=== PATIENT | female | born 1980 | race Caucasian/White ===

== ENCOUNTER 2019-10-18 12:57 | Emergency (ER) | payer BC, SELFPAY ==
--- NOTE | ~2019-10-18 | XR_ITS ---
XR foot RT min 3V 10/18/2019 13:23 Indication: Stubbed right great toe. Toe pain. Procedure: 4 views right foot Comparison: No prior studies for comparison. Findings: There is a nondisplaced fracture medial base of the first distal phalanx. Mild soft tissue swelling. No foreign bodies. Lisfranc joint is intact. Impression: 1: Nondisplaced fracture medial base right first distal phalanx. Reviewed, dictated and finalized at location A. Impression: 1: Nondisplaced fracture medial base right first distal phalanx.
--- NOTE | 2019-10-18 13:08 | ED.GENADULT ---
HPI - General Adult General Chief complaint: Extremity Injury, Lower Stated complaint: right foot injury Time Seen by Provider: 10/18/19 13:08 Source: patient Mode of arrival: ambulatory Limitations: no limitations History of Present Illness HPI narrative: 39-year-old female patient presents to the [facility] with complaints of right great toe pain. Patient states that yesterday she kicked a tackle box. Patient states since then she has been using rest, ice, and elevation. Patient states she has been taking ibuprofen for her pain. Patient states she has had a walk on the lateral edge of her foot and cannot bear weight on the toe area. Patient states she has had a little bit of tingling to the great toe area. Related Data Allergies Allergy/AdvReac Type Severity Reaction Status Date / Time No Known Allergies Allergy Unverified 06/25/17 17:40 Review of Systems Review of Systems: Narrative: CONSTITUTIONAL: Denies fever, chills, or sweats. EYES: Denies visual changes, redness, or discharge. ENT: Denies rhinorrhea, congestion, sore throat, or otalgia. CARDIOVASCULAR: Denies chest pain, palpitations, or edema. RESPIRATORY: Denies cough or dyspnea. GASTROINTESTINAL: Denies abdominal pain, nausea, vomiting, or diarrhea. GENITOURINARY: Denies dysuria or hematuria. SKIN: Denies rash or itching. MUSCULOSKELETAL: Denies back pain, joint pain, or myalgia. Positive right great toe pain NEUROLOGIC: Denies headache, numbness, or weakness. PSYCHIATRIC: Denies anxiety or depression. PMFSH Comments At the time of my signature I agree with nursing past medical history, surgical, social, and family history. There is no relevant family history pertinent to the presenting complaint. Exam Narrative: Exam Narrative: GENERAL: Well-appearing, well-nourished, and in no acute distress. HEAD: Normocephalic, atraumatic. EYES: PERRLA and EOMI. ENT: Nares clear, no rhinorrhea or epistaxis. Mucous membranes moist. NECK: Supple. No lymphadenopathy CHEST: Clear to auscultation. No respiratory distress. HEART: Regular rate and rhythm. No murmur heard. Normal peripheral pulses. ABDOMEN: Soft, nontender, nondistended, normal active bowel sounds. EXTREMITIES: Patient able to bear weight and ambulate but has pain to the right great toe area. Patient does have some ecchymosis noted to the posterior foot area. There is some swelling noted to the great toe as compared to the left great toe. No erythema, lesions, ulcers or break in skin integrity. The R foot is without obvious asymmetry or deformity when compared to the L foot. No bony step-off, tender to palpation over the right great toe, no pain or tenderness over the midfoot or hindfoot or sole. Normal plantar/dorsiflexion, inversion/eversion. Distal motor and neurovascular status are intact SKIN: Warm, dry, no rash. NEURO: No focal deficits. Alert and oriented x3. Course Reevaluation(s) Reevaluation #1: Reevaluated patient after her x-ray had resulted. Discussed with her that there is a tiny nondisplaced avulsion fracture to the right great toe. Discussed with her that we will go ahead and angeles tape the toes and place her in a postop shoe to help with walking. Discussed with her she can follow-up with her primary doctor or we will also refer to the orthopedic surgeon for follow-up. Discussed with patient she can continue taking Tylenol and ibuprofen as needed for the pain, keep it elevated and continue to ice it as needed. Patient verbalized understanding of this denies any other questions or concerns at this time. Date: 10/18/19 Time: 13:38 Vital Signs Vital signs: Vital Signs Temperature 37.4 C 10/18/19 13:12 Pulse Rate 94 10/18/19 13:12 Respiratory Rate 16 10/18/19 13:12 Blood Pressure 112/62 10/18/19 13:12 Pulse Oximetry 99 10/18/19 13:12 Temperature 37.4 C 10/18/19 13:12 Pulse Rate 94 10/18/19 13:12 Respiratory Rate 16 10/18/19 13:12 Blood Pressure 112/62 10/18/19 13:
[2019-10-18 13:12] VITALS: BP 112/62; PULSE 94; RESP 16; TEMP 37.4; O2SAT 99
== END 2019-10-18 13:47 | disposition home or self-care (01) ==
PROVIDERS: Emergency Provider Nurse Practitioner Family; PCP Family Medicine
DX: S92.424A Nondisplaced fracture of distal phalanx of right great toe, initial encounter for closed fracture (principal); W22.8XXA Striking against or struck by other objects, initial encounter
CPT/HCPCS: 73630; 99214; G0463

== ENCOUNTER 2020-02-10 08:44 | Emergency (ER) | payer BC, SELFPAY ==
--- NOTE | 2020-02-10 08:52 | ED.GENADULT ---
HPI - General Adult General Chief complaint: Ear Stated complaint: Right Eye,Left Ear Pain Time Seen by Provider: 02/10/20 09:15 Source: patient Mode of arrival: ambulatory Limitations: no limitations History of Present Illness HPI narrative: 39-year-old female patient presents to the [facility] with complaints of right eye pain and left ear pain. Patient states that the right eye pain started this past Sunday and states she has been using some warm compresses, and some [id number] stye cream. Patient states she has does not wear contacts. Patient states that she has not been wearing eye make-up. Patient states she has had some crusty discharge she noticed in the morning. Denies any vision changes. Patient states that she has had 14 surgeries on bilateral ears and states that her eardrum to the left ear has dropped and was instructed by her ENT doctor never to have her ears flushed. Patient states she does use some sweet oil to the left ear to try and break up the wax but states that her wax does get very hard and is dark and sometimes is difficult to get out. Related Data Allergies Allergy/AdvReac Type Severity Reaction Status Date / Time No Known Allergies Allergy Unverified 06/25/17 17:40 Review of Systems Review of Systems: Narrative: CONSTITUTIONAL: Denies fever, chills, or sweats. EYES: Denies visual changes, positive right upper eyelid redness, and discharge x3 days. ENT: Denies rhinorrhea, congestion, sore throat, positive left ear pain CARDIOVASCULAR: Denies chest pain, palpitations, or edema. RESPIRATORY: Denies cough or dyspnea. GASTROINTESTINAL: Denies abdominal pain, nausea, vomiting, or diarrhea. GENITOURINARY: Denies dysuria or hematuria. SKIN: Denies rash or itching. MUSCULOSKELETAL: Denies back pain, joint pain, or myalgia. NEUROLOGIC: Denies headache, numbness, or weakness. PSYCHIATRIC: Denies anxiety or depression. [facility] Past Medical History Medical History (Updated 02/10/20 @ 09:30 by JANA Hudson) section wound complication Social History Social History Gender identity (if verbalized by the patient): Female Comments At the time of my signature I agree with nursing past medical history, surgical, social, and family history. There is no relevant family history pertinent to the presenting complaint. Exam Narrative: Exam Narrative: GENERAL: Well-appearing, well-nourished, and in no acute distress. HEAD: Normocephalic, atraumatic. EYES: PERRLA and EOM intact without limitation or complaint of pain, patient does have some soft tissue swelling with erythema noted to the upper lid of the right eye, no warmth, positive tenderness noted, no obvious deformity. On inversion of the upper lid there is a stye noted. No crusting or swelling.no tearing or draining.No photophobia. No nystagmus No FB or lesion on lid eversion. Corneas grossly clear, no obvious FB or hyphens/hypopyon. No injection to sclera. Lids and lashes clear. ENT: Nares clear, no rhinorrhea or epistaxis. Mucous membranes moist. Patient does have some scarring on the tympanic membrane of the right ear. The left TM is unable to be assessed due to cerumen impaction. NECK: Supple. No lymphadenopathy CHEST: Clear to auscultation. No respiratory distress. HEART: Regular rate and rhythm. No murmur heard. Normal peripheral pulses. ABDOMEN: Soft, nontender, nondistended, normal active bowel sounds. EXTREMITIES: Normal range of motion. No edema. SKIN: Warm, dry, no rash. NEURO: No focal deficits. Alert and oriented x3. Course Vital Signs Vital signs: Vital Signs Temperature 36.9 C 02/10/20 08:55 Pulse Rate 82 02/10/20 08:55 Respiratory Rate 16 02/10/20 08:55 Blood Pressure 108/67 02/10/20 08:55 Pulse Oximetry 100 02/10/20 08:55 Temperature 36.9 C 02/10/20 08:55 Pulse Rate 82 02/10/20 08:55 Respiratory Rate 16 02/10/20 08:55 Blood Pressure
[2020-02-10 08:55] VITALS: BP 108/67; PULSE 82; RESP 16; TEMP 36.9; O2SAT 100
== END 2020-02-10 09:30 | disposition home or self-care (01) ==
PROVIDERS: Emergency Provider Nurse Practitioner Family
DX: H61.22 Impacted cerumen, left ear (principal); H00.021 Hordeolum internum right upper eyelid
CPT/HCPCS: 99213; G0463

== ENCOUNTER 2021-05-02 11:39 | Emergency (ER) | payer OTHER, SELFPAY ==
--- NOTE | ~2021-05-02 | XR_ITS ---
EXAMINATION: XR ankle LT min 3V DATE: 05/02/2021 11:59 INDICATION: Injury with swelling to the left lateral ankle TECHNIQUE: Anteroposterior, oblique, mortise, and lateral views of the left ankle were obtained. COMPARISON: None. FINDINGS: Tiny minimally displaced avulsion fracture fragment along the lateral process of the talus likely inv olving the footplate of the anterior talofibular ligament. Bone alignment is otherwise normal. No oth er fractures identified. Joint spaces are normal. No left ankle joint effusion. Soft tissue swelling about the lateral malleolus. IMPRESSION: 1. Small minimally distracted avulsion fracture fragment likely of the talar footplate of the anterio r talofibular ligament. Reviewed, dictated and finalized at location B. 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 Small minimally distracted avulsion fracture fragment likely of the talar fo otplate of the anterior talofibular ligament.
[2021-05-02 11:50] VITALS: BP 125/80; PULSE 102; RESP 16; TEMP 37.2; O2SAT 100
--- NOTE | 2021-05-02 12:03 | ED.LOWEXIN ---
HPI - Extremity Injury (Lower) General Chief Complaint: Extremity Injury, Lower Stated Complaint: Left ankle Pain Time Seen by Provider: 05/02/21 12:03 Source: patient, RN notes reviewed and old records reviewed Mode of arrival: ambulatory Limitations: no limitations History of Present Illness HPI Narrative: 41-year-old female presents to the [facility] with complaints of left ankle pain after rolling it last night and feeling to pops. Has been taking ibuprofen resting and elevating along with ice with minimal to no relief. Related Data Allergies Allergy/AdvReac Type Severity Reaction Status Date / Time amoxicillin [From Augmentin] Allergy Hives Verified 05/03/21 13:54 clavulanic acid Allergy Hives Verified 05/03/21 13:54 [From Augmentin] Review of Systems Review of Systems: All systems reviewed & are unremarkable except as noted in HPI and below Constitutional: Constitutional: Reports no additional constitutional complaints, Denies chills and Denies fever(s) Eyes: Eyes: Reports no additional eye complaints ENT: Reports system reviewed and no additional complaints, except as documented Cardiovascular: Cardiovascular: Reports no additional cardiovascular complaints and Denies chest pain Respiratory: Respiratory: Reports no additional respiratory complaints, Denies cough and Denies dyspnea Gastrointestinal: Gastrointestinal: Reports no additional gastrointestinal complaints, Denies abdominal pain, Denies nausea and Denies vomiting Genitourinary: Genitourinary: Reports no additional female genitourinary complaints Musculoskeletal: Musculoskeletal: Reports as per HPI, Reports arthralgias (Left lateral ankle) and Reports joint swelling (Left lateral ankle) Integumentary/Breasts: Skin/Breast: Reports system reviewed and no additional complaints, except as docu Neurologic: Reports system reviewed and no additional complaints, except as documented Psychiatric: Psychiatric: Reports no additional psychiatric complaints Allergic/Immunologic: Allergic/Immunologic: Reports no additional allergic/immunologic complaints [facility] Past Medical History Medical History section wound complication Surgical History Surgical History History of section History of ear surgery Family History Family History Mother Depression Other Family history of cancer Social History Social History Smoking status: Never smoker Alcohol intake: current Substance use: never Gender identity (if verbalized by the patient): Female Comments At the time of my signature, I reviewed and agree with the nursing past medical, surgical, social, and family history. There is no relevant family history pertinent to the patient complaint. Exam Const: General: no acute distress Nutritional Appearance: well nourished Orientation/consciousness: patient oriented x3 HENMT: Head: normal to inspection Eyes: Pupils: Equal, round and reactive pupils present Neck: Neck: normal visual inspection, no lymphadenopathy and no meningeal signs Chest: Chest palpation & inspection: normal inspection of the chest Resp: Effort & Inspection: normal respiratory effort Auscultation: clear to auscultation bilaterally Cardio: Rate: regular rate Rhythm: regular rhythm Back/Spine/Pelvis: Back: no CVA tenderness Skin: General skin exam: normal color Rashes: no rashes Neuro: General: patient oriented x3, moves all extremities, no meningeal signs and no focal motor deficits Speech: normal speech Gait exam (Neuro): gait abnormal (Well-appearing favoring left) Extrem: General: normal to inspection Left lower extremity: ankle Details: tenderness, swelling, abnormal ROM Details: pain with active ROM and pain with pass
== END 2021-05-02 12:58 | disposition home or self-care (01) ==
PROVIDERS: Emergency Provider Nurse Practitioner
DX: S92.152A Displaced avulsion fracture (chip fracture) of left talus, initial encounter for closed fracture (principal); X50.9XXA Other and unspecified overexertion or strenuous movements or postures, initial encounter; F17.200 Nicotine dependence, unspecified, uncomplicated
CPT/HCPCS: 29515; 73610; 99214; G0463

== ENCOUNTER 2022-08-15 18:50 | Observation (INO) | payer OTHER, SELFPAY ==
[2022-08-15] VITALS (22 sets, daily range): BP systolic 92–130; BP diastolic 49–90; PULSE 81–127; RESP 12–28; TEMP 36.7–39.4; O2SAT 96–100; BMI 26.2
--- NOTE | ~2022-08-15 | CT_ITS ---
EXAMINATION: CT abdomen pelvis w con DATE: 08/15/2022 21:40 INDICATION: Bilateral flank and abdominal pain. Sepsis. TECHNIQUE: Computed tomography (CT) of the abdomen and pelvis was performed with 100 cc Omnipaque 350 intravenous contrast. The dose-length product was 366.15 mGy-cm. Automated exposure control and iter ative reconstruction technique were employed. COMPARISON: None. FINDINGS: Lung bases are unremarkable. Heart size normal. No significant pleural or pericardial effus ion. No significant vascular abnormality. No lymphadenopathy. Small subcentimeter hypodensity of the right hepatic lobe, most likely benign. The spleen, pancreas, adrenal glands are unremarkable. There is right hydronephrosis with proximal urothelial enhancement, suspicious for ascending urinary tract infection. Gallbladder is present. There is fluid throughout the nondilated colon. The colonic wall i s thought thickened. No free air or free fluid. There is an IUD present in the uterus. Bladder is unr emarkable. IMPRESSION: 1. Mild right hydronephrosis with urothelial enhancement, suspicious for ascending urinary tract infe ction. 2: Fluid-filled nondilated colon with air-fluid levels. No significant colonic wall thickening or jesse rounding pericolonic inflammation. Cannot exclude mild early colitis. Reviewed, dictated and finalized at location A. IMPRESSION: 1. Mild right hydronephrosis with urothelial enhancement, suspicious for ascend ing urinary tract infection. 2: Fluid-filled nondilated colon with air-fluid levels. No significant colonic wall thickening or surrounding pericolonic inflammation. Cannot exclude mild ea rly colitis.
--- NOTE | ~2022-08-15 | US_ITS ---
EXAMINATION: US renal BI DATE: 08/16/2022 09:41 INDICATION: Hydroureteronephrosis TECHNIQUE: Multiple ultrasound grayscale images of the kidneys were obtained. COMPARISON: CT dated 08/15/2022 FINDINGS: The right kidney measures 10.9 x 5.7 x 7.1 cm. The left kidney measures 12.3 x 6.9 x 6.1 cm. There ar e regions of subtly increased renal cortical echogenicity at both kidneys which appear to correlate w ith geographic regions of hypoenhancement on prior CT. This along with the urothelial enhancement at the renal collecting systems and ureters evident on prior CT would be consistent with bilateral ascen ding urinary tract infections and bilateral pyelonephritis. No renal abscess. Mild caliectasis at the bilateral kidneys without cedrick hydronephrosis. No stones identified. The partially decompressed bl adder is normal with bilateral ureteral jets visualized with color Doppler. IMPRESSION: 1. Geographic regions of subtly increased renal cortical echogenicity in both kidneys with correspon ding hypoenhancement on prior CT consistent with bilateral pyelonephritis. 2. Mild caliectasis at the bilateral kidneys without cedrick hydronephrosis. Reviewed, dictated and finalized at location A. IMPRESSION: 1. Geographic regions of subtly increased renal cortical echogenicity in both kidneys with corresponding hypoenhancement on prior CT consistent with bilatera l pyelonephritis. 2. Mild caliectasis at the bilateral kidneys without cedrick hydronephrosis.
[2022-08-15 19:10] LABS: Basophils Absolute Auto 0.1 K/mm3 (0.0-0.1); Basophils Percent Auto 0.3 % (0.2-1.2); Hematocrit 38.4 % (37.0-47.0); Immature Granulocyte Absolute 0.13 K/mm3 (0.00-0.031); Immature Granulocyte Percent A 0.6 % (0-0.5); Lymphocytes Percent Auto 5.7 % (18.3-44.2); Mean Corpuscular HGB Conc 33.9 g/dl (32-36); Mean Corpuscular Hemoglobin 33.4 pg (26-34); Mean Corpuscular Volume 98.7 fl (80-100); Mean Platelet Volume 9.8 fl (7.4-10.4); Monocytes Absolute Auto 1.7 K/mm3 (0.1-0.6); Neutrophils Percent Auto 85.4 % (45.5-73.1); Platelet Count Result 185 k/mm3 (150-375); Red Blood Count 3.89 M/mm3 (4.2-5.4); Red Cell Distribution Width 13.3 % (11.5-14.5); White Blood Count 21.1 K/mm3 (4.5-10.0)
[2022-08-15 19:21] LABS: Alanine Aminotransferase 36 U/L (6-35); Alkaline Phosphatase 86 U/L (38-126); Anion Gap 7 mmol/L (8-16); Aspartate Amino Transferase 28 U/L (14-36); Bilirubin,Total 0.8 mg/dL (0.2-1.3); Blood Urea Nitrogen 6 mg/dL (7-17); Calcium 8.6 mg/dL (8.4-10.2); Carbon Dioxide 27 mmol/L (22-30); Chloride 97 mmol/L (98-107); Estimated Glomerular Filt Rate > 60; Glucose 119 mg/dL (65-110); Lipase 17 U/L (23-300); Potassium 3.7 mmol/L (3.4-5.0); Sodium 131 mmol/L (137-145)
[2022-08-15 19:26] LABS: Appearance Urine Turbid (Clear); Bacteria Urine 4+ /hpf; Bilirubin Urine Negative (Negative); Blood Urine 3+ (Negative); Color Urine Yellow (Yellow); Glucose Urine UA Negative (Negative); Ketones Urine Trace mg/dL (Negative); Leukocyte Esterase Ur 3+ LEU/UL (Negative); Nitrate Urine Positive (Negative); Protein Urine 2+ mg/dL (Negative); Specific Grav Ur 1.013 (1.001-1.035); Squamous Epithelial Cell Urine Few /hpf (Few); WBC Urine >100 /hpf
[2022-08-15 19:32] LABS: Add Urine Microscopic? YES
--- NOTE | 2022-08-15 20:03 | ED.ABDPAIN ---
HPI - Abdominal Pain General Chief Complaint: Abdominal Pain Stated Complaint: abd pain, body aches Time Seen by Provider: 08/15/22 19:55 History of Present Illness HPI narrative: The patient is a 42-year-old female with no past medical history here due to generalized malaise, fevers, low back pain and urinary symptoms for the past 4 days. Patient states that her whole body hurts but is localized in her low back. She states her symptoms began with some burning with urination and has since progressed in severity. She had fevers at home but is unsure how high they reached and she has not taken any Tylenol for her symptoms. Reports nausea but no vomiting. She also has a generalized headache, but no neck stiffness. Related Data Home Medications Medication Instructions Recorded Confirmed No Home Medications 06/14/21 06/14/21 Allergies Allergy/AdvReac Type Severity Reaction Status Date / Time amoxicillin [From Augmentin] Allergy Hives Verified 08/15/22 20:09 clavulanic acid Allergy Hives Verified 08/15/22 20:09 [From Augmentin] Review of Systems Review of Systems: Gen.: reports fevers Eyes: Denies eye pain or visual change ENT: Denies congestion Respiratory: Denies shortness of breath or cough CV: Denies chest pain or palpitations GI: reports nausea. Denies abdominal pain, emesis or diarrhea : Reports burning, urgency and frequency Musculoskeletal: reports low back pain Neuro: Reports headache. Denies numbness, tingling, weakness or focal weakness Skin: Denies rash Except as documented, all other systems reviewed and negative PMFSH Past Medical History Medical History section wound complication Surgical History Surgical History History of section History of ear surgery Family History Family History Mother Depression Other Family history of cancer Social History Social History Smoking status: Current every day smoker Smoking end date: 08/14/22 Alcohol intake: current Substance use: current Substance use type: marijuana Lack of Transportation: No Lack of Food: Never True Current Housing: I Have Housing Concerned About Future Housing: No Difficulty Paying Gas/Electric Bills: No Difficulty Paying for Meds: No Currently Unemployed: No Education: Associate Degree Difficulty w/ Childcare or Family Care: No Living arrangements: alone Occupation/Education: occupation Gender identity (if verbalized by the patient): Female Spiritual care concerns: No Exam Narrative: APPEARANCE: Well appearing, no pain in distress, well-nourished. Head: Normocephalic and atraumatic. EYES: PERRLA/EOMI, conjunctivae clear NOSE: No nasal drainage EARS: External ear normal in appearance THROAT: Oropharynx is clear. Mucous membranes are moist. NECK: No nuchal rigidity. Supple. No adenopathy, no masses. RESPIRATORY: Airway patent, respirations nonlabored. Clear to auscultation bilaterally, no rales, rhonchi, wheezing. CARDIOVASCULAR: Tachycardic, regular rhythm without murmurs rubs or gallops ABDOMINAL: Normoactive bowel sounds. Soft, nontender, nondistended. No rebound tenderness or guarding. MUSCULOSKELETAL: No CVA tenderness. Extremities are warm and well-perfused. Moves all extremities well. No edema. NEURO: Normal speech. No focal neurologic deficits. SKIN: Skin is warm and dry. No rashes. PSYCHIATRIC: Normal affect/mood. Course Vital Signs Vital signs: Vital Signs Temperature 102.1 F H 08/15/22 18:54 Pulse Rate 121 H 08/15/22 18:54 Respiratory Rate 18 08/15/22 18:54 Blood Pressure 130/70 08/15/22 18:54 Pulse Oximetry 100 08/15/22 18:54 Oxygen Delivery Room Air 08/15/22 18:54 Temperature
[2022-08-15] MEDS: SODIUM CHLORIDE 0.9% IV 1,000 ML 999 ML IV CONT ×2 (20:07→21:50)
[2022-08-15 20:35] LABS: Pregnancy On Board Control Positive; Urine Pregnancy Test Negative
[2022-08-15 20:38] LABS: Lactic Acid Reflex 0.8 mmol/L (0.7-2.0)
--- NOTE | 2022-08-15 22:25 | PM.IMHP ---
H&P: HPI History of Present Illness Date/Time: 08/15/22 22:25 Chief Complaint: Abdominal pain and fever Narrative: Patient is a 42-year-old female with no significant past medical history coming in with abdominal pain and fever for 2 days. Patient says that she has been having on and off diarrhea for the past 2 days associated with some crampy lower abdominal pain. She noticed some fever and chills as well. She denies any nausea or vomiting. No coughing or chest pain. She does admit to some dysuria. Denies any hematuria or melena or hematochezia. Patient self-medicated with some [id number] UTI medications with no relief. Patient says she has regular monthly periods. No vaginal discharge. She has an IUD in place. On her arrival to the ER patient had negative test and had a dirty urine. She had imaging of her abdomen which showed some right-sided hydronephrosis with urothelial enhancement, suspicious for ascending urinary tract infection. She was empirically treated with ceftriaxone and IV fluids. Review of Systems Review of Systems: Minimal fever, no weight loss no vision changes, no eye discharge no throat pain, no hoarseness, no lymphadenopathy no chest pain, no palpitations no coughing, no wheezing Positive abdominal pain, no diarrhea, no nausea, no vomiting no dysuria, no vaginal discharge no leg swelling, no edema no suicidal or homicidal ideation PMFSH Past Medical History Medical History section wound complication Surgical History Surgical History History of section History of ear surgery Family History Family History Mother Depression Other Family history of cancer Social History Social History Smoking status: Current every day smoker Smoking end date: 08/14/22 Alcohol intake: current Substance use: current Substance use type: marijuana Lack of Transportation: No Lack of Food: Never True Current Housing: I Have Housing Concerned About Future Housing: No Difficulty Paying Gas/Electric Bills: No Difficulty Paying for Meds: No Currently Unemployed: No Education: Associate Degree Difficulty w/ Childcare or Family Care: No Living arrangements: alone Occupation/Education: occupation Gender identity (if verbalized by the patient): Female Spiritual care concerns: No Meds Home Medications and Allergies Home Medications Medication Instructions Recorded Confirmed Type No Home Medications 06/14/21 06/14/21 History Allergies Allergy/AdvReac Type Severity Reaction Status Date / Time amoxicillin [From Augmentin] Allergy Hives Verified 08/15/22 20:09 clavulanic acid Allergy Hives Verified 08/15/22 20:09 [From Augmentin] Vital Signs Vital Signs - 24 hr 08/15/22 18:54 08/15/22 19:51 08/15/22 20:08 Temperature 102.1 F H 102.9 F H Pulse Rate 121 H 120 H Respiratory Rate 18 14 Blood Pressure 130/70 105/90 Pulse Oximetry 100 99 Oxygen Delivery Room Air 08/15/22 20:34 Temperature 98.0 F Pulse Rate Respiratory Rate Blood Pressure Pulse Oximetry Oxygen Delivery Exam Narrative: general- awake, alert, oriented, no distress heent- perrl, no nystagmus, no throat swelling, no dicharge chest- clear breath sounds, no wheezes, rales, no crackles heart- s1, s2, regular rate and rhythm, no gallops or murmurs abdomen- soft, bowel sounds heard, no rebound or tenderness extremities- no edema or cyanosis psych- no suicidal or homicidal ideation neuro- moves all extremities, no focal neurologic deficit, mentation intact H&P: Results Labs Labs: Short CBC 08/15/22 Range/Units 19:01 WBC 21.1 H (4.5-10.0) K/mm3 Hgb 13.0 (12.0-15.0) g/dL Hct 38.4 (37
[2022-08-15] MEDS: ACETAMINOPHEN 325 MG TABLET 650 MG PO (23:44)
[2022-08-15] MEDS: KETOROLAC 15 MG/ML VIAL (*BKC) IV PUSH (23:58)
[2022-08-16] MEDS: SODIUM CHLORIDE 0.9% IV 1,000 ML 125 ML IV CONT ×3 (00:05→19:38)
[2022-08-16 04:35] VITALS: TEMP 37.3
[2022-08-16] MEDS: ACETAMINOPHEN 325 MG TABLET 650 MG PO ×2 (04:35→09:08)
[2022-08-16 05:43] VITALS: BP 110/63; PULSE 96; RESP 16; TEMP 37.1; O2SAT 100
[2022-08-16 06:06] LABS: Basophils Absolute Auto 0.1 K/mm3 (0.0-0.1); Basophils Percent Auto 0.5 % (0.2-1.2); Eosinophils Absolute Auto 0.1 K/mm3 (0-0.3); Eosinophils Percent Auto 0.4 % (0-4.4); Hemoglobin 11.2 g/dL (12.0-15.0); Immature Granulocyte Absolute 0.11 K/mm3 (0.00-0.031); Immature Granulocyte Percent A 0.6 % (0-0.5); Lymphocytes Absolute Auto 0.66 K/mm3 (0.9-3.2); Lymphocytes Percent Auto 3.7 % (18.3-44.2); Mean Corpuscular HGB Conc 32.9 g/dl (32-36); Mean Corpuscular Hemoglobin 33.3 pg (26-34); Mean Corpuscular Volume 101.2 fl (80-100); Mean Platelet Volume 10.1 fl (7.4-10.4); Monocytes Absolute Auto 1.6 K/mm3 (0.1-0.6); Neutrophils Absolute Auto 15.2 K/mm3 (1.3-6.7); Neutrophils Percent Auto 85.8 % (45.5-73.1); Platelet Count Result 146 k/mm3 (150-375); Red Blood Count 3.36 M/mm3 (4.2-5.4); Red Cell Distribution Width 13.4 % (11.5-14.5); White Blood Count 17.7 K/mm3 (4.5-10.0)
[2022-08-16 06:14] LABS: INR 1.3; Prothrombin Time 15.3 Seconds (11.1-14.7)
[2022-08-16 06:29] LABS: Alanine Aminotransferase 44 U/L (6-35); Albumin Level 3.3 g/dL (3.5-5.1); Alkaline Phosphatase 86 U/L (38-126); Anion Gap 5 mmol/L (8-16); Aspartate Amino Transferase 45 U/L (14-36); Bilirubin,Total 0.6 mg/dL (0.2-1.3); Blood Urea Nitrogen 6 mg/dL (7-17); Calcium 7.7 mg/dL (8.4-10.2); Carbon Dioxide 27 mmol/L (22-30); Chloride 104 mmol/L (98-107); Estimated CRCL calculation 93 ml/min; Estimated Glomerular Filt Rate > 60; Glucose 117 mg/dL (65-110); Potassium 3.6 mmol/L (3.4-5.0); Sodium 136 mmol/L (137-145)
--- NOTE | 2022-08-16 09:45 | PM.IMPN ---
Progress Note: A&P Assessment and Plan (1) Pyelonephritis: Code(s): N12 - Tubulo-interstitial nephritis, not specified as acute or chronic Status: Acute Assessment and Plan: Presented with abdominal pain, and fever for [address] of the abd/pel showed mild right hydronephrosis suspicious for ascending UTI UA appeared infectious US of the kidneys Bilateral pyelonephritis with no hydronephrosis no stones detected Trend urine output Urine culture pending Continue IV ceftriaxone pain medications added (2) Sepsis: Code(s): A41.9 - Sepsis, unspecified organism Status: Acute Assessment and Plan: Appears to be a severe sepsis Meets sirs criteria with fever, tachycardia, leukocytosis Lactic normal Hypotension noted with a BP <90 systolic Blood cultures pending UA appears infectious Hydrated in ED Continue maintenance fluids for now Continue IV ceftriaxone appears to be secondary to pyelonephritis US of the kidneys to rule out hydronephrosis Trend urine output adjust therapy to culture results (3) UTI (urinary tract infection): Code(s): N39.0 - Urinary tract infection, site not specified Status: Acute Assessment and Plan: UA appears to be infectious Continue IV antibiotics Awaiting culture results trend urine output adjust therapy to culture results (4) SIRS (systemic inflammatory response syndrome): Code(s): R65.10 - Systemic inflammatory response syndrome (SIRS) of non-infectious origin without acute organ dysfunction Status: Acute Assessment and Plan: Noted above (5) Hydronephrosis: Code(s): N13.30 - Unspecified hydronephrosis Status: Acute Assessment and Plan: CT indicated mild right sided hydronephrosis US of the kidneys ordered Trend urine output most likely the cause of the UTI Time Spent With Patient Time: 52 minutes Time with patient: Greater than 35 minutes Subjective Date/time seen: 08/16/22944 Interval history: 08/16/22944 patient is sitting up in bed. Patient stated that she is having a lot of pain especially in her abdomen. She also stated that she just aches all over. She denies any chest pain, nausea, vomiting, constipation. She did state that she was having a little diarrhea however she stated that she is post to start her menstrual cycle which she usually gets intermittent diarrhea at that time. She also states that she is a little short of breath on the level of she does not think she can take a deep breath. She stated that her pain is mostly in lower abdomen rates up to her epigastric area. She also states that she is having a little pain and burning when she urinates and feels like 70s pinching and off. She does have some urgency however she states that she has been waiting after she gets the 1st urge that she waits until it comes back. However she does get the sweats and fevers. 08/15/22? 22:25 Patient is a 42-year-old female with no significant past medical history coming in with abdominal pain and fever for 2 days.? Patient says that she has been having on and off diarrhea for the past 2 days associated with some crampy lower abdominal pain.? She noticed some fever and chills as well.? She denies any nausea or vomiting.? No coughing or chest pain.? She does admit to some dysuria.? Denies any hematuria or melena or hematochezia.? Patient self-medicated with some [id number] UTI medications with no relief. Patient says she has regular monthly periods.? No vaginal discharge.? She has an IUD in place. On her arrival to the ER patient had negative test and had a dirty urine.? She had imaging of her abdomen which showed some right-sided hydronephrosis with urothelial enhancement, suspicious for ascending urinary tract infection.? She was empirically treated
--- NOTE | 2022-08-16 09:45 | P.PNIM_ITS ---
Progress Note: A&P Assessment and Plan (1) Pyelonephritis: Code(s): N12 - Tubulo-interstitial nephritis, not specified as acute or chronic Status: Acute Assessment and Plan: * Presented with abdominal pain, and fever for 2 days * CT of the abd/pel showed mild right hydronephrosis suspicious for ascending UTI * UA appeared infectious * US of the kidneys Bilateral pyelonephritis with no hydronephrosis no stones detected * Trend urine output * Urine culture pending * Continue IV ceftriaxone * pain medications added (2) Sepsis: Code(s): A41.9 - Sepsis, unspecified organism Status: Acute Assessment and Plan: * Appears to be a severe sepsis * Meets sirs criteria with fever, tachycardia, leukocytosis * Lactic normal * Hypotension noted with a BP <90 systolic * Blood cultures pending * UA appears infectious * Hydrated in ED * Continue maintenance fluids for now * Continue IV ceftriaxone * appears to be secondary to pyelonephritis * US of the kidneys to rule out hydronephrosis * Trend urine output * adjust therapy to culture results (3) UTI (urinary tract infection): Code(s): N39.0 - Urinary tract infection, site not specified Status: Acute Assessment and Plan: * UA appears to be infectious * Continue IV antibiotics * Awaiting culture results * trend urine output * adjust therapy to culture results (4) SIRS (systemic inflammatory response syndrome): Code(s): R65.10 - Systemic inflammatory response syndrome (SIRS) of non-infectious origin without acute organ dysfunction Status: Acute Assessment and Plan: * Noted above (5) Hydronephrosis: Code(s): N13.30 - Unspecified hydronephrosis Status: Acute Assessment and Plan: * CT indicated mild right sided hydronephrosis * US of the kidneys ordered * Trend urine output * most likely the cause of the UTI Time Spent With Patient Time: 52 minutes Time with patient: Greater than 35 minutes Subjective Date/time seen: 08/16/22944 Interval history: 08/16/22944 patient is sitting up in bed. Patient stated that she is having a lot of pain especially in her abdomen. She also stated that she just aches all over. She denies any chest pain, nausea, vomiting, constipation. She did state that she was having a little diarrhea however she stated that she is post to start her menstrual cycle which she usually gets intermittent diarrhea at that time. She also states that she is a little short of breath on the level of she does not think she can take a deep breath. She stated that her pain is mostly in lower abdomen rates up to her epigastric area. She also states that she is having a little pain and burning when she urinates and feels like 70s pinching and off. She does have some urgency however she states that she has been waiting after she gets the 1st urge that she waits until it comes back. However she does get the sweats and fevers. 08/15/22? 22:25 Patient is a 42-year-old female with no significant past medical history coming in with abdominal pain and fever for 2 days.? Patient says that she has been having on and off diarrhea for the past 2 days associated with some crampy lower abdominal pain.? She noticed some fever and chills
--- NOTE | 2022-08-16 12:24 | WPDURCON ---
Assessment and Plan Assessment and plan (1) Hydronephrosis: Code(s): N13.30 - Unspecified hydronephrosis Status: Acute Assessment and Plan: No obstruction on CT noted. Will f/u in one month with a LARRY to ensure it resolves with treatment of infection. (2) UTI (urinary tract infection): Code(s): N39.0 - Urinary tract infection, site not specified Status: Acute Assessment and Plan: The patient has never had a UTI. She states she doesn't drink much water, I encouraged her to increase her water intake as this is a contributor to infections. She should continue IV antibiotics and tailor to culture results. CT shows no obvious source of infection. WBC is improving on IV antibiotics. No further evaluation needed. Urology Consult Note HPI Date Seen: 08/16/22 Time Seen: 12:25 Requesting Physician: Regan Hopson MD Primary Care Provider: [facility] SPECIALIST PHYSICIAN Consult Narrative Reason for consult: Right [place]/UTI Narrative: Marcella Sequeira is a 42 year old female who presented to the ER yesterday d/t worsening UTI symptoms, body aches, fever, low back pain, abdominal pain and malaise that started 4 days prior. She had a CT scan in the ER which showed right sided hydronephrosis with urothelial enhancement suspicious for ascending UTI. Urine and blood cultures are pending. She is afebrile currently. WBC is 17.7 down from 21.1, creatinine is 0.60, UA is suggestive of a UTI. She is currently on Ceftriaxone. Review of Systems Cardiovascular: Cardiovascular: Denies chest pain Gastrointestinal: Gastrointestinal: Denies abdominal pain, Denies nausea and Denies vomiting Genitourinary: Genitourinary: Denies hematuria, Reports dysuria, Reports pelvic pain, Reports flank pain, Denies urinary hesitancy and Reports urinary urgency [facility] Past Medical History Medical History Avulsion fracture of ankle section wound complication Closed avulsion fracture of left talus Surgical History Surgical History History of section History of ear surgery Family History Family History Mother Depression Other Family history of cancer Social History Social History Smoking status: Current every day smoker Smoking end date: 08/14/22 Alcohol intake: current Substance use: current Substance use type: marijuana Lack of Transportation: No Lack of Food: Never True Current Housing: I Have Housing Concerned About Future Housing: No Difficulty Paying Gas/Electric Bills: No Difficulty Paying for Meds: No Currently Unemployed: No Education: Associate Degree Difficulty w/ Childcare or Family Care: No Living arrangements: alone Occupation/Education: occupation Gender identity (if verbalized by the patient): Female Spiritual care concerns: No Meds Home Medications and Allergies Home Medications Medication Instructions Recorded Confirmed Type No Home Medications 06/14/21 08/16/22 History Allergies Allergy/AdvReac Type Severity Reaction Status Date / Time amoxicillin [From Augmentin] Allergy Hives Verified 08/15/22 20:09 clavulanic acid Allergy Hives Verified 08/15/22 20:09 [From Augmentin] Vital Signs Vital Signs - 24 hr 08/15/22 18:54 08/15/22 19:51 08/15/22 20:08 Temperature 102.1 F H 102.9 F H Pulse Rate 121 H 120 H Respiratory Rate 18 14 Blood Pressure 130/70 105/90 Pulse Oximetry 100 99 Oxygen Delivery Room Air 08/15/22 20:34 08/15/22 22:50 08/15/22 19:34 Temperature 98.0 F Pulse Rate 127 H Respiratory Rate 28 H Blood Pressure 101/63 Pulse Oximetry Oxygen Delivery 08/15/22 19:45 08/15/22 19:46 08/15/22 20:05 Temperature Pulse Rate 113 H 114 H 117 H
[2022-08-16] MEDS: ONDANSETRON INJ 4 MG/2 ML VIAL IV PUSH ×2 (13:17→21:27)
[2022-08-16 14:00] VITALS: BP 103/54; PULSE 95; RESP 16; TEMP 36.8; O2SAT 99
[2022-08-16 19:33] VITALS: O2SAT 99
[2022-08-16] MEDS: cefTRIAXone 2 GM/NS 100 ML 2 GM/100 ML BAG IVPB (19:37)
[2022-08-16] MEDS: HYDROcodone/acetaminophen (*CRX) 5-325 MG TABLET 1 TAB PO (21:27)
[2022-08-16 21:47] VITALS: BP 103/49; PULSE 83; RESP 16; TEMP 37; O2SAT 100
[2022-08-17 05:19] VITALS: TEMP 37.3
[2022-08-17] MEDS: ACETAMINOPHEN 325 MG TABLET 650 MG PO (05:19)
[2022-08-17 05:39] VITALS: BP 120/46; PULSE 87; RESP 16; TEMP 37.3; O2SAT 98
[2022-08-17] MEDS: SODIUM CHLORIDE 0.9% IV 1,000 ML 125 ML IV CONT (05:57)
[2022-08-17 05:58] VITALS: TEMP 37.1
[2022-08-17 06:25] LABS: Basophils Absolute Auto 0.1 K/mm3 (0.0-0.1); Basophils Percent Auto 0.4 % (0.2-1.2); Eosinophils Absolute Auto 0.1 K/mm3 (0-0.3); Eosinophils Percent Auto 0.9 % (0-4.4); Hemoglobin 11.5 g/dL (12.0-15.0); Immature Granulocyte Absolute 0.06 K/mm3 (0.00-0.031); Immature Granulocyte Percent A 0.5 % (0-0.5); Lymphocytes Absolute Auto 0.91 K/mm3 (0.9-3.2); Lymphocytes Percent Auto 7.6 % (18.3-44.2); Mean Corpuscular HGB Conc 32.9 g/dl (32-36); Mean Corpuscular Hemoglobin 32.3 pg (26-34); Mean Corpuscular Volume 98.3 fl (80-100); Mean Platelet Volume 10.2 fl (7.4-10.4); Monocytes Absolute Auto 1.3 K/mm3 (0.1-0.6); Monocytes Percent Auto 10.8 % (2.6-8.5); Neutrophils Absolute Auto 9.6 K/mm3 (1.3-6.7); Neutrophils Percent Auto 79.8 % (45.5-73.1); Platelet Count Result 168 k/mm3 (150-375); Red Blood Count 3.56 M/mm3 (4.2-5.4); Red Cell Distribution Width 13.4 % (11.5-14.5)
[2022-08-17 06:39] LABS: Alanine Aminotransferase 49 U/L (6-35); Albumin Level 3.1 g/dL (3.5-5.1); Alkaline Phosphatase 88 U/L (38-126); Anion Gap 6 mmol/L (8-16); Aspartate Amino Transferase 42 U/L (14-36); Bilirubin,Total 0.5 mg/dL (0.2-1.3); Blood Urea Nitrogen 5 mg/dL (7-17); Calcium 7.5 mg/dL (8.4-10.2); Carbon Dioxide 24 mmol/L (22-30); Chloride 106 mmol/L (98-107); Estimated CRCL calculation 93 ml/min; Estimated Glomerular Filt Rate > 60; Glucose 109 mg/dL (65-110); Magnesium 2.1 mg/dL (1.6-2.3); Potassium 3.3 mmol/L (3.4-5.0); Sodium 136 mmol/L (137-145)
[2022-08-17 08:00] VITALS: PULSE 87; RESP 16; O2SAT 98
--- NOTE | 2022-08-17 10:15 | PM.DS ---
DS: Admitting Diagnosis Discharge Date 08/17/22 1015 Admitting Diagnosis Hi nephritis, UTI, sepsis DS: Discharge Diagnosis Discharge Diagnosis (1) Pyelonephritis: Code(s): N12 - Tubulo-interstitial nephritis, not specified as acute or chronic Status: Acute Assessment and Plan: Presented with abdominal pain, and fever for [address] of the abd/pel showed mild right hydronephrosis suspicious for ascending UTI UA appeared infectious US of the kidneys Bilateral pyelonephritis with no hydronephrosis no stones detected Trend urine output Urine culture E coli Continue IV ceftriaxone changed to p.o. cefdinir pain medications added (2) Sepsis: Code(s): A41.9 - Sepsis, unspecified organism Status: Acute Assessment and Plan: Appears to be a severe sepsis Meets sirs criteria with fever, tachycardia, leukocytosis Lactic normal Hypotension noted with a BP <90 systolic Blood cultures pending UA appears infectious Hydrated in ED Continue maintenance fluids for now Continue IV ceftriaxone changed to p.o. cefdinir appears to be secondary to pyelonephritis US of the kidneys to rule out hydronephrosis Trend urine output adjust therapy to culture results (3) UTI (urinary tract infection): Code(s): N39.0 - Urinary tract infection, site not specified Status: Acute Assessment and Plan: UA appears to be infectious Continue IV antibiotics changed to p.o. cefdinir culture results grew E coli trend urine output adjust therapy to culture results (4) SIRS (systemic inflammatory response syndrome): Code(s): R65.10 - Systemic inflammatory response syndrome (SIRS) of non-infectious origin without acute organ dysfunction Status: Acute Assessment and Plan: Noted above (5) Hydronephrosis: Code(s): N13.30 - Unspecified hydronephrosis Status: Acute Assessment and Plan: CT indicated mild right sided hydronephrosis US of the kidneys bilateral pyelonephritis mild caliectasis at the bilateral kidneys without cedrick hydronephrosis Trend urine output most likely the cause of the UTI DS: Summary Hospital Course Hospital Course: patient is a 42-year-old female with no significant past medical history who presented to the ED with complaints of abdominal pain and fever for 2 days. Patient stated that she has been having on and off diarrhea for the last 2 days and that she has been having crampy lower abdominal pain. She also knows she has been having fevers and chills. Upon arrival it was noted that the patient did [place] [id number]. UA did appear infectious and urine culture did grow E coli. Patient was initially started on IV ceftriaxone and was rehydrated with IV fluids. Currently WBCs are trending down a currently 12. Ultrasound of the kidney did show no hydronephrosis however did show caliectasis without hydronephrosis and bilateral pyelonephritis. Patient did meet SIRS criteria along with sepsis criteria. Blood cultures have no growth to date. Currently patient is stable for discharge. Labs and vital signs remained stable as well. She denies any current chest pain, shortness a breath, nausea, vomiting, diarrhea or constipation. Status at Discharge Functional status at discharge: independent ambulation Overall status at discharge: patient is progressing back to baseline Time Spent with Patient Time attestation: Total time spent providing and/or coordinating discharge services: 48 minutes Time spent: Greater than 30 minutes Specific discharge activities: Diagnostic testing, chart review, developing a treatment plan, education, care coordination documentation, physical exam, result review Exam Narrative: General: well-nourished, well-appearing 42-year-old female, sitting up in bed, comfortabl
--- NOTE | 2022-08-17 10:15 | P.DS_ITS ---
DS: Admitting Diagnosis Discharge Date 08/17/22 1015 Admitting Diagnosis Hi nephritis, UTI, sepsis DS: Discharge Diagnosis Discharge Diagnosis (1) Pyelonephritis: Code(s): N12 - Tubulo-interstitial nephritis, not specified as acute or chronic Status: Acute Assessment and Plan: * Presented with abdominal pain, and fever for 2 days * CT of the abd/pel showed mild right hydronephrosis suspicious for ascending UTI * UA appeared infectious * US of the kidneys Bilateral pyelonephritis with no hydronephrosis no stones detected * Trend urine output * Urine culture E coli * Continue IV ceftriaxone changed to p.o. cefdinir * pain medications added (2) Sepsis: Code(s): A41.9 - Sepsis, unspecified organism Status: Acute Assessment and Plan: * Appears to be a severe sepsis * Meets sirs criteria with fever, tachycardia, leukocytosis * Lactic normal * Hypotension noted with a BP <90 systolic * Blood cultures pending * UA appears infectious * Hydrated in ED * Continue maintenance fluids for now * Continue IV ceftriaxone changed to p.o. cefdinir * appears to be secondary to pyelonephritis * US of the kidneys to rule out hydronephrosis * Trend urine output * adjust therapy to culture results (3) UTI (urinary tract infection): Code(s): N39.0 - Urinary tract infection, site not specified Status: Acute Assessment and Plan: * UA appears to be infectious * Continue IV antibiotics changed to p.o. cefdinir * culture results grew E coli * trend urine output * adjust therapy to culture results (4) SIRS (systemic inflammatory response syndrome): Code(s): R65.10 - Systemic inflammatory response syndrome (SIRS) of non-infectious origin without acute organ dysfunction Status: Acute Assessment and Plan: * Noted above (5) Hydronephrosis: Code(s): N13.30 - Unspecified hydronephrosis Status: Acute Assessment and Plan: * CT indicated mild right sided hydronephrosis * US of the kidneys bilateral pyelonephritis mild caliectasis at the bilateral kidneys without cedrick hydronephrosis * Trend urine output * most likely the cause of the UTI DS: Summary Hospital Course Hospital Course: patient is a 42-year-old female with no significant past medical history who presented to the ED with complaints of abdominal pain and fever for 2 days. Patient stated that she has been having on and off diarrhea for the last 2 days and that she has been having crampy lower abdominal pain. She also knows she has been having fevers and chills. Upon arrival it was noted that the patient did [place] [id number]. UA did appear infectious and urine culture did grow E coli. Patient was initially started on IV ceftriaxone and was rehydrated with IV fluids. Currently WBCs are trending down a currently 12. Ultrasound of the kidney did show no hydronephrosis however did show caliectasis without hydronephrosis and bilateral pyelonephritis. Patient did meet SIRS criteria along with sepsis criteria. Blood cultures have no growth to date. Currently patient is stable for discharge. Labs and vital signs remained stable as well. She denies any current chest pain, shortness a breath, nausea, vomiting, diarrhea or constipation. Stat
[2022-08-17] MEDS: CEFDINIR 300 MG CAPSULE PO (12:10)
== END 2022-08-17 12:30 | disposition home or self-care (01) ==
LOC: ANHED 19:58 → ANH3MEDSUR 08-16 01:01
PROVIDERS: Emergency Medicine; Nurse Practitioner; Admitting Provider Internal Medicine; Emergency Provider Physician Assistant; Visit Provider Chiropractor
DX: N12 Tubulo-interstitial nephritis, not specified as acute or chronic (principal); A41.9 Sepsis, unspecified organism; N39.0 Urinary tract infection, site not specified; B96.20 Unspecified Escherichia coli [E. coli] as the cause of diseases classified elsewhere; R65.10 Systemic inflammatory response syndrome (SIRS) of non-infectious origin without acute organ dysfunction; N13.30 Unspecified hydronephrosis; R53.81 Other malaise; R51.9 Headache, unspecified; D72.829 Elevated white blood cell count, unspecified; F17.210 Nicotine dependence, cigarettes, uncomplicated; F10.90 Alcohol use, unspecified, uncomplicated; F12.90 Cannabis use, unspecified, uncomplicated; F15.90 Other stimulant use, unspecified, uncomplicated
CPT/HCPCS: 36415; 74177; 76775; 80053; 81001; 81025; 83605; 83690; 83735; 85025; 85610; 87040; 87077; 87086; 87186; 96360; 96361; 96365; 96366; 96375; 96376; 99285; A9270; G0378; J0131; J0696; J1885; J2405; J7030; Q9967